=== PATIENT | female | born 1995 ===

== ENCOUNTER 2017-08-07 11:26 | Emergency (ER) | payer OTHER ==
[~2017-08-07] VITALS: Ht 162.6 cm; Wt 56.7 kg
[~2017-08-07 11:26] MED LIST: FIORICET 50-321 EACH PO; INTESTINEX680 MG PO; ZANTAC150 MG PO
[2017-08-07] MEDS ORDERED: AMOX1TAB5 PO (13:58)
== END 2017-08-07 14:35 | disposition home or self-care (01) ==
LOC: ER 11:26
DX: B34.9 Viral infection, unspecified (principal)

== ENCOUNTER 2018-04-06 20:14 | Emergency (ER) | payer OTHER ==
[~2018-04-06] VITALS: Ht 162.6 cm; Wt 56.7 kg
[~2018-04-06 20:14] MED LIST changes: +AMOX1TAB5 PO
== END 2018-04-06 21:42 | disposition home or self-care (01) ==
LOC: ER 20:14
DX: S13.4XXA Sprain of ligaments of cervical spine, initial encounter (principal); V49.9XXA Car occupant (driver) (passenger) injured in unspecified traffic accident, initial encounter; Y93.89 Activity, other specified; Y92.488 Other paved roadways as the place of occurrence of the external cause; Y99.8 Other external cause status

== ENCOUNTER → 2018-07-13 | Emergency (ER) | payer OTHER ==
[~2018-07-13] VITALS: Ht 162.6 cm; Wt 56.2 kg
[~2018-07-13] MED LIST changes: +PROVENTIL HFA6.7 GM IH
== END | disposition left against medical advice (07) ==
LOC: ER 02:42
DX: Z53.20 Procedure and treatment not carried out because of patient's decision for unspecified reasons (principal)

== ENCOUNTER 2024-11-13 10:51 | Outpatient (CLI) | payer OTHER | END 2024-11-13 10:56 | disposition home or self-care (01) | LOC: PRENATAL 10:51 | PROVIDERS: ATTEND Obstetrics & Gynecology Maternal & Fetal Medicine | DX: O36.80X0 Pregnancy with inconclusive fetal viability, not applicable or unspecified (principal); Z36.82 Encounter for antenatal screening for nuchal translucency; Z14.8 Genetic carrier of other disease; O34.219 Maternal care for unspecified type scar from previous cesarean delivery; Z3A.12 12 weeks gestation of pregnancy ==

== ENCOUNTER → 2025-01-01 07:25 | Outpatient (CLI) | payer OTHER | END | disposition home or self-care (01) | LOC: PRENATAL 07:25 | PROVIDERS: ATTEND Obstetrics & Gynecology Maternal & Fetal Medicine | DX: O44.02 Complete placenta previa NOS or without hemorrhage, second trimester (principal); O34.219 Maternal care for unspecified type scar from previous cesarean delivery; Z3A.20 20 weeks gestation of pregnancy ==